=== PATIENT | female | born 1970 | race Caucasian/White ===

== ENCOUNTER → 2021-06-24 09:06 | Outpatient (BNVA) | payer OTHER, SELFPAY | PROVIDERS: Referring Provider Family Medicine; Visit Provider Podiatrist Foot & Ankle Surgery | DX: M79.671 Pain in right foot (principal) | CPT/HCPCS: 73630 ==

== ENCOUNTER 2021-06-25 11:57 | Emergency (ER) | payer OTHER, SELFPAY ==
[2021-06-25 12:06] VITALS: BP 125/76; PULSE 90; RESP 14; TEMP 36.6; O2SAT 96; BMI 43.0
--- NOTE | 2021-06-25 12:31 | XR_ITS ---
WS: [id number] Exam: XR finger RT min 2V 93183 Date/Time of Exam: 06/25/2021 12:31 PM Reason For Exam: trauma; index The index finger is targeted for radiographic evaluation. No fracture or dislocation. No soft tissue foreign bodies. XR/XR finger RT min 2V [id number] IMPRESSION: 1. No fracture identified.
--- NOTE | 2021-06-25 12:51 | ED_ITS ---
HPI - Extremity Injury (Upper) General: Chief Complaint: Extremity Injury, Upper Stated Complaint: Injured finger, R hand Time Seen by Provider: 06/25/21 12:50 Source: patient Mode of arrival: ambulatory Limitations: no limitations History of Present Illness: HPI narrative: Patient is a 50-year-old female presents to ED today with complaint of an injury to her right index finger. This is a workers comp injury. 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 Patient is an [employer] employee. complaint: injury to: right and finger Onset (ago): hour(s) Other Extremity Injury: Right: fingers Place: work Relieving factors: immobilization Exacerbating factors: movement of extremity Context: crush Associated symptoms: Reports no associated symptoms Review of Systems Musc: Reports: extremity pain (R finger pain) Neuro: Denies: numbness in extremities or sensory changes [facility] ED PFSH: Medical History Benign essential HTN Dyslipidemia GERD (gastroesophageal reflux disease) History of melanoma Hypothyroidism Surgical History History of endometrial ablation Hx of appendectomy Hx of cholecystectomy Hx of shoulder surgery Bilateral shoulders. Hx of tonsillectomy Hx of tubal ligation Family History Other CAD (coronary artery disease) Cancer Hyperlipidemia Hypertension Social History Alcohol intake: current Alcohol intake frequency: 0-2 Drinks per Day Marital status: Number of children: 5 Current occupational status: employed Current occupation: [employer] Physical Exam Const: COMMON NORMALS: no acute distress and no limitations Extremity: OTHER: TTP and mild swelling of R index PIP joint; maintains ROM; no breaks in skin; NV intact Course Vital Signs: Vital signs: Vital Signs Temperature 97.9 F 06/25/21 12:06 Pulse Rate 90 06/25/21 12:06 Respiratory Rate 14 06/25/21 12:06 Blood Pressure 125/76 06/25/21 12:06 Pulse Oximetry 96 06/25/21 12:06 MDM - Extremity Injury (Upper) MDM Narrative: Medical decision making narrative: XR negative. Will finger splint and have her follow up with worker's comp. Imaging Data^: XR R finger: Radiologist's impression: [place] [id number] [place], [place] [address]XRay ReportSigned Patient: Saurabh FRIEDMAN #: [id number]: [id number]#:[id number]/Sex: 50 / FADM Date: 06/25/21Loc: ERRoom/Bed:Attending Dr: Ordering Provider/Ordering MD: Jnaae Singh Date of Service: 06/25/21 Procedure(s): XR finger RT min 2V 74531 Accession Number(s): [id number] Report Number: [id number] WS: [id number] Exam: XR finger RT min 2V [id number] Date/Time of Exam: 06/25/2021 12:31 PM Reason For Exam: trauma; index The index finger is targeted for radiographic evaluation. No fracture or dislocation. No soft tissue foreign bodies. XR/XR finger RT min 2V [id number] IMPRESSION: 1. No fracture identified. Dictated By:Curtis Collins, DOSigned By:Curtis Collins, DOSigned Date/Time:06/25/21 1245DD/ 1244 Discharge Plan Discharge Patient Disposition: Home Clinical Impression: Crushing injury of right index finger Qualifiers: Encounter type: initial encounter Qualified Code(s): S67.190A - Crushing injury of right index finger, initial encounter Condition: Stable Prescriptions: No Action pantoprazole 40 mg tablet,delayed release (DR/EC) 40 mg PO BID RF: 0 metoprolol succinate 50 mg tablet extended release 24 hr 50 mg PO DAILY RF: 0 rosuvastatin 20 mg tablet 20 mg PO DAILY RF: 0 lisinopril-hydrochlorothiazide 20-25 mg tablet 1 tab PO DAILY RF: 0 levothyroxine 175 mcg tablet 175 mcg PO DAILY RF: 0 omega-3 fatty acids [Fish Oil Concentrate] 1,000 mg capsule 1,000 mg PO DAILY RF: 0 meloxicam [Mobic] 7.5 mg tablet 7.5 mg PO DAILY Qty: 30 RF: 1 naproxen 500 mg tablet 500 mg PO BID 30 Days Qty: 60 RF: 0 Discharge Orders: Discharge ED (Routine); Ordered 06/25/21 Ordered By: Janae Singh Activity Restrictions/Additional Instructions: PLEASE FOLLOW UP WITH WORKERS COMP DIRECTED. Coding Level of Care Code ED Health Teacher for Pelon Strickland
== END 2021-06-25 13:57 | disposition home or self-care (01) ==
PROVIDERS: Emergency Provider Physician Assistant
DX: S67.190A Crushing injury of right index finger, initial encounter (principal); I10 Essential (primary) hypertension; E78.5 Hyperlipidemia, unspecified; W23.0XXA Caught, crushed, jammed, or pinched between moving objects, initial encounter; Y99.0 Civilian activity done for income or pay
CPT/HCPCS: 73140; 99282

== ENCOUNTER → 2021-07-06 15:06 | Outpatient (BNVA) | payer OTHER, SELFPAY | PROVIDERS: Visit Provider Family Medicine | DX: I10 Essential (primary) hypertension (principal); E03.9 Hypothyroidism, unspecified; E78.5 Hyperlipidemia, unspecified | CPT/HCPCS: 80053; 80061; 82043; 84439; 84443; 85025 ==

== ENCOUNTER 2021-08-05 14:27 | Outpatient (CLI) | payer OTHER, SELFPAY ==
--- NOTE | 2021-08-05 18:40 | ONC CON_ITS ---
Dr. Hoffman New Patient Note Patient: Nedia Wong Unit #: [id number]: [id number] Dicatated By: Emmanuel Hoffman M.D.Date of Visit: Aug 05, 2021 Onc MED New Patient/Consult Referring Physician: Dr. NEIDA MCKINNON D.O. Chief Complaint: Melanoma. 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 On 08/05/2020 she underwent shave biopsy of a suspicious skin lesion on the upper right arm. Pathology showed malignant melanoma, superficial spreading type. The lesion was ulcerated with a Breslow depth of at least 3.7 mm. It had a mitotic rate of 12/mm???. On 09/04/2020 she underwent wide excision of the melanoma with right axillary sentinel lymph node biopsy. Pathology showed residual melanoma with a depth of 0.4 mm. The margins were negative. There was involvement in 1 axillary sentinel lymph node, noted to be multifocal with the largest aggregate measuring 5.5 mm. There was no extracapsular invasion identified. Her pathologic staging was pT3b, pN1a. She had medical oncology consultation with Dr. Nathan Santoro in [place], [place] on 09/09/2020. Her subsequent staging PET/CT showed evidence of postoperative seroma in the right axilla, but there was no evidence of metastatic disease. MRI of the brain also showed no evidence of metastatic disease. She was offered adjuvant immunotherapy, which she declined. She had recently relocated to this area, and she is seen now for further surveillance of the melanoma. She has been feeling good generally. She says her energy is good most of the time, though she is sometimes fatigued. She says she stays busy with her job. Her ECOG score is 0. Her appetite is down somewhat. She has been seeing Dr. Mckinnon for weight loss. She does not have fever, night sweats, or hot flashes. She has not had sore mouth or throat. She does not complain of cough, and she has not been having shortness of breath or chest pain. She has had acid reflux issues quite often, but those have improved with Protonix. Bowel and bladder function have been okay. She has never had a colonoscopy. She does have joint soreness, especially in her hands, and she also has some chronic low back pain. She does not complain of headache or dizziness, and she has no focal neurologic symptoms. Past Medical History: Her medical history includes gastroesophageal reflux disease, hyperlipidemia, hypertension, hypothyroidism, and melanoma of the upper right arm. Past Surgical History: She underwent shave biopsy of right upper arm melanoma on 08/05/2020. She underwent wide excision of right upper extremity melanoma with right axillary sentinel lymph node biopsy on 09/04/2020. Her other surgical/procedural history includes appendectomy, section in 2004, cholecystectomy, endometrial ablation in 2018, rotator cuff repair bilaterally, tonsillectomy, and tubal ligation. Medications: Contrave 1 Tablet (of 8-90 mg) Tablet SR 12 HR Oral b.i.d., Fish Oil 1 Capsule (of 100 mg) Oral daily, Levothyroxine Sodium 1 Tablet (of 175 mcg) Oral daily, Lisinopril-hydroCHLOROthiazide 1 Tablet (of 20-25 mg) Oral daily, Metoprolol Succinate 1 Capsule (of 50 mg) Capsule ER 24 Hr Sprinkle Oral daily, Pantoprazole Sodium 1 Tablet (of 40 mg) Tablet, enteric coated Oral b.i.d., Rosuvastatin Calcium 1 Capsule (of 20 mg) Capsule Sprinkle Oral daily Allergies: egg and Penicillins. Social History: Ms. Wong is . She has history of smoking 1 pack of cigarettes daily for 30 years. She quit smoking in 2016. She has occasional alcohol use. Family History: Father at age 63 with hepatitis C. Mother at age 63 with cerebral aneurysm. She also was found at autopsy to have a brain tumor. She has 2 brothers, both with heart disease. She has 10 living sisters, all doing okay. One sister in infancy with congenital heart disease. A daughter of the patient also with congenital heart disease. Review Of Symptoms: Constitutional - Her energy is okay most of the time, though she is sometimes fatigued. She is busy with her job. Her appetite is down somewhat. She is trying to lose weight. She does not have fever, night sweats, or hot flashes. ECOG score is 0, Eyes - No change in vision, ENMT - No hearing loss or tinnitus. No sinus congestion/drainage. No mouth sores. No sore throat or difficulty swallowing, Hematologic/Lymphatic - No abnormal bruising or bleeding, Respiratory - No shortness of breath. No cough. No pleuritic pain or hemoptysis, Cardiovascular - No angina pain. No palpitations, Gastrointestinal - No nausea or vomiting. She has had issues with acid reflux quite often, but that has improved on Protonix. No diarrhea or constipation. No blood in the stool or black stools. She has never had a colonoscopy, Genitourinary (F) - No dysuria or hematuria. No urinary frequency. No urgency or incontinence, Musculoskeletal - She has some soreness in her joints, mainly her hands. She has some chronic back pain, Integumentary - She has a history of melanoma. She has no other skin changes, Neurologic - No headache or dizziness. No numbness or tingling. No other focal neurologic symptoms, Psychiatric - No anxiety or depression. No insomnia. Vital Signs: Performed on Aug 05, 2021 15:51: 6, 0, 42.54 (HIGH), 2.04 sq.m, 62 in, 96 %, 83 /min, 18 /min, 107/68 mm(hg), 97.7 F (LOW), and 232.6 lbs (HIGH). Physical Examination: Constitutional - She appears to be in good general health, Eyes - Sclerae nonicteric. Conjunctivae clear, ENMT - No lesions noted in the oral cavity, Neck - No mass or thyromegaly, Hematologic/Lymphatic - No cervical, clavicular, or axillary adenopathy, Respiratory - Lungs are clear with good air movement bilaterally, Cardiovascular - Heart rhythm is regular. There is no murmur, gallop, or rub noted, Abdomen - Moderately distended. Liver and spleen are not enlarged. There is no abdominal mass or ascites noted and there is no inguinal adenopathy, Back/Spine - No spine or CVA tenderness noted, Extremities - No edema. Pedal pulses are palpable bilaterally, Integumentary - There is no evidence of local recurrence in the upper right arm. There are multiple seborrheic keratoses on the back. There are no suspicious skin lesions noted, Neurologic - No focal neurologic deficits noted. Lab/Imaging: Her laboratory studies from 07/06/2021 included CBC showing hemoglobin 14.6 g, white blood cell count 9600, and platelet count 255,000. Comprehensive metabolic profile showed normal renal function with BUN 24 and creatinine 0.7 mg/dL. Alkaline phosphatase was slightly elevated at 126/105 IU/L. The bilirubin and the other liver enzymes were normal. Problem List: 1. Malignant melanoma involving the upper right arm, superficial spreading type, stage IIIC (pT3b, pN1a, M0). 2. Hypertension. 3. Hyperlipidemia. 4. GERD. 5. Hypothyroidism. Problems Addressed with this Encounter and Plan: Patient with malignant melanoma involving the upper right arm, superficial spreading type. She underwent shave biopsy of the lesion on 08/05/2020 followed by wide excision and right axillary sentinel lymph node biopsy on 09/04/2020. Pathology showed an ulcerated lesion with a Breslow depth of at least 3.7 mm. There was multifocal involvement in 1 sentinel lymph node, the largest aggregate measuring 5.5 mm. There was no evidence of metastatic involvement on staging PET/CT and head MRI. As such, her disease was stage IIIC (pT3b, pN1a, M0). She was offered adjuvant immunotherapy, which she declined. She has been followed expectantly. Thus far she appears stable clinically with no evidence of recurrence of the melanoma. She will continue expectant management. She will be scheduled for a follow-up visit at a 6-month interval from her lab studies. In the meantime, I also will arrange for referral to Dr. Mcclelland, as she also should have a yearly skin exam. Signed By: Emmanuel Hoffman M.D. <<Signature on File>>
== END 2021-08-05 14:28 | disposition home or self-care (01) ==
LOC: ONCMED 14:32
PROVIDERS: Visit Provider Internal Medicine Medical Oncology
DX: C43.61 Malignant melanoma of right upper limb, including shoulder (principal); K21.9 Gastro-esophageal reflux disease without esophagitis; E78.5 Hyperlipidemia, unspecified; I10 Essential (primary) hypertension; E03.9 Hypothyroidism, unspecified; Z87.891 Personal history of nicotine dependence
CPT/HCPCS: 99204